=== PATIENT | male | born 1980 | race Caucasian/White ===

== ENCOUNTER 2021-03-31 10:01 | Outpatient (CLI) | payer BC | END 2021-03-31 10:02 | disposition home or self-care (01) | LOC: BICRAD 10:01 | PROVIDERS: ATTEND Family Medicine | DX: M54.42 Lumbago with sciatica, left side (principal); M51.36 Other intervertebral disc degeneration, lumbar region; M51.37 Other intervertebral disc degeneration, lumbosacral region | CPT/HCPCS: 72100 ==